=== PATIENT | male | born 1980 | race American Indian/Alaskan Native ===

== ENCOUNTER 2022-10-31 08:37 | Emergency (ER) | payer BC ==
[~2022-10-31] VITALS: Ht 182.9 cm; Wt 105.0 kg
[2022-10-31] MEDS ORDERED: SODIUM CHLORIDE 0.9% 1,000 ML IV ONE (10:45)
[2022-10-31] MEDS ORDERED: MORPHINE SULFATE 4 MG/ML CPJ (NOT FOR IM USE) IV ONE (10:45)
[2022-10-31] MEDS ORDERED: ONDANSETRON HCL 4MG/2ML INJ IV ONE (10:45)
[2022-10-31 11:37] LABS: BASOPHILS % 0.2 % (0.0-2.0); EOSINOPHILS % 0.8 % (0.0-5.0); HEMATOCRIT. 44.5 % (42.0-52.0); LYMPHOCYTES % 17.4 % (20.0-50.0); MEAN CORPUSCULAR HEMOGLOBIN 30.3 pg (28.0-32.0); MEAN CORPUSCULAR VOLUME 89.7 fL (80.0-94.0); MEAN PLATELET VOLUME 8.2 fl (7.4-10.4); MONOCYTES % 4.3 % (2.0-8.0); NEUTROPHILS % 77.3 % (40.0-76.0); PLATELET 381 x1000/uL (130-400); RED BLOOD CELL COUNT 4.96 mill/uL (4.7-6.1); RED CELL DISTRIBUTION WIDTH 12.6 % (11.6-14.6)
[2022-10-31 11:45] LABS: CHLORIDE 104 mEq/L (98-107); PROTHROMBIN TIME 10.3 sec (9.6-11.0)
[2022-10-31 11:54] LABS: ETHANOL BLOOD < 10 mg/dL
[2022-10-31] MEDS ORDERED: HYDR-4001 MT (12:02)
[2022-10-31] MEDS ORDERED: IBUP-2029 MT (12:02)
[2022-10-31] MEDS ORDERED: TAMS-11 MT (12:02)
[2022-10-31] MEDS ORDERED: CEPH500C2 MT (12:02)
[2022-10-31] MEDS ORDERED: TAMSULOSIN HCL 0.4MG SR CAPSULE PO NR (12:15)
[2022-10-31] MEDS ORDERED: CEPHALEXIN 250MG CAPSULE PO NR (12:15)
[2022-10-31] MEDS ORDERED: KETOROLAC 15MG/ML VIAL IV ONE (12:15)
[2022-10-31 12:49] VITALS: BP 157/92
== END 2022-10-31 12:53 | disposition home or self-care (01) ==
LOC: ER 08:37
DX: N20.1 Calculus of ureter (principal); K57.90 Diverticulosis of intestine, part unspecified, without perforation or abscess without bleeding; E11.65 Type 2 diabetes mellitus with hyperglycemia; R03.0 Elevated blood-pressure reading, without diagnosis of hypertension
CPT/HCPCS: 36415; 74176; 80053; 80320; 83690; 85025; 85610; 96374; 96375; 99284; J1885; J2270; J2405; J7030; Z7610; G0480